=== PATIENT | female | born 1985 | race Caucasian/White ===

== ENCOUNTER 2018-06-28 17:18 | Outpatient (CLI) | payer MEDICAID ==
[~2018-06-28] VITALS: Ht 180.3 cm; Wt 115.5 kg
[~2018-06-28 17:18] MED LIST: BILBERRY; CALCIUM 600/VIT1 CA1; IBU600 MG PO; IRON325 MG PO; PRENATAL1 TA7 PO; PRIMROSE OIL; VITAMIN E 400 U4001 PO; [UNRECOGNIZED DRUG - OTHER]
[2018-06-28 17:23] VITALS: BP 125/72; PULSE 82; TEMP 98.8
== END 2018-06-28 18:25 | disposition home or self-care (01) ==
LOC: LDRO 17:18 → LDR 17:36 → LDRO 18:25
DX: O26.892 Other specified pregnancy related conditions, second trimester (principal); R10.10 Upper abdominal pain, unspecified; Z3A.27 27 weeks gestation of pregnancy
CPT/HCPCS: OP

== ENCOUNTER 2018-09-28 15:55 | Inpatient (IN) | payer MEDICAID ==
[2018-09-28] VITALS (7 sets, daily range): BP systolic 119–141; BP diastolic 66–78; PULSE 75–86; TEMP 97.4–97.7
[~2018-09-28] VITALS: Ht 180.3 cm; Wt 116.4 kg
[2018-09-28] MEDS ORDERED: VITAMIN B COMPL1 SGL PO (16:05)
[2018-09-28 16:31] LABS: BASO % 0.2 % (0.0-2.0); EOS # 0.3 (0.0-0.7); EOS % 1.9 % (0-4.0); GRAN # 9.8 (1.4-6.5); GRAN % 71.9 % (42.2-75.2); HEMATOCRIT 39.5 % (37.0-47.0); HEMOGLOBIN 13.3 g/dl (12.5-16.0); LYMPH # 2.5 (1.2-3.4); LYMPH % 18.2 % (20.0-51.0); MEAN CELL VOLUME 90 fl (80.0-100.0); MEAN CORPUSCULAR HEMOGLOBIN 30 pg (27.0-31.0); MEAN CORPUSCULAR HGB CONC 34 g/dl (33.0-37.0); MEAN PLATELET VOLUME 11.6 fl (7.4-10.4); MONO % 7.5 % (1.7-9.3); PLATELET COUNT 218 K/mm3 (130-400); RED BLOOD COUNT 4.37 M/mm3 (4.10-5.30); REDCELL DISTRIBUTION WIDTH-CV 12.4 % (11.5-14.5)
[2018-09-29] VITALS (11 sets, daily range): BP systolic 108–145; BP diastolic 48–78; PULSE 75–90; TEMP 97.4–98.5
[2018-09-30 08:30] VITALS: BP 117/65; PULSE 74; TEMP 97.7
== END 2018-09-30 11:50 | disposition home or self-care (01) | DRG 807 ==
LOC: LDRO 15:55 → LDR 15:56 → OB 16:05 → LDRO 16:05 → OB 09-29 02:45
PROVIDERS: ADMIT Student in an Organized Health Care Education/Training Program
PROC: 10E0XZZ Delivery of Products of Conception, External Approach (ICD-10-PCS; principal; 2018-09-29)
DX: O34.211 Maternal care for low transverse scar from previous cesarean delivery (principal); Z37.0 Single live birth; Z3A.40 40 weeks gestation of pregnancy; O99.214 Obesity complicating childbirth; O87.4 Varicose veins of lower extremity in the puerperium
CPT/HCPCS: J2210; J2590; J7120

== ENCOUNTER → 2020-04-28 | Outpatient (CLI) | payer MEDICAID ==
[~2020-04-28] MED LIST changes: +VITAMIN B COMPL1 SGL PO
== END | disposition still patient (30) ==
LOC: ZCOL.LAB 05:24
DX: Z20.828 Contact with and (suspected) exposure to other viral communicable diseases (principal)

== ENCOUNTER 2020-04-30 07:00 | Inpatient (IN) | payer MEDICAID ==
[~2020-04-30] VITALS: Ht 180.3 cm; Wt 122.7 kg
[2020-04-30] VITALS (26 sets, daily range): BP systolic 109–153; BP diastolic 56–95; PULSE 76–100; TEMP 97.9–98.1
[2020-04-30 07:46] LABS: BASO % 0.3 % (0.0-2.0); EOS # 0.2 (0.0-0.7); EOS % 1.9 % (0-4.0); GRAN # 6.7 (1.4-6.5); GRAN % 65.2 % (42.2-75.2); HEMATOCRIT 38.4 % (37.0-47.0); HEMOGLOBIN 13.1 g/dl (12.5-16.0); LYMPH # 2.6 (1.2-3.4); LYMPH % 24.7 % (20.0-51.0); MEAN CELL VOLUME 92 fl (80.0-100.0); MEAN CORPUSCULAR HEMOGLOBIN 31 pg (27.0-31.0); MEAN CORPUSCULAR HGB CONC 34 g/dl (33.0-37.0); MEAN PLATELET VOLUME 11.8 fl (7.4-10.4); MONO # 0.8 (0.1-0.6); MONO % 7.5 % (1.7-9.3); PLATELET COUNT 176 K/mm3 (130-400); RED BLOOD COUNT 4.18 M/mm3 (4.10-5.30); REDCELL DISTRIBUTION WIDTH-CV 12.1 % (11.5-14.5)
--- NOTE | 2020-04-30 08:32 | NUR ---
0700 PATIENT HERE FOR INDUCTION OF LABOR. EFM ON FHT 125 BABY VERY ACTIVE. PATIENT STATES HAVING OCCASIONAL CONTRACTIONS BUT NOTHING REGULAR. ASSESSMENT DONE, AND IV STARTED AT THIS TIME.
--- NOTE | 2020-04-30 10:49 | NUR ---
1030 DR MAJANO AT BEDSIDE. SVE /-1 AROM WITH AMNIOHOOK LIGHT MEC FLUID. NOTED. PATIENT WANTS EPIDURAL NOW. ESTEFANIA WANG CRNA CALLED AND AT BEDSIDE. 1040 PATIENT SITS UP FOR EPIDURAL PLACEMENT. SEE [employer]CH[employer]IC HELPER NOTES . PATIENT TOLERATES WELL
--- NOTE | 2020-04-30 11:11 | NUR ---
1100 DR REMAINS AT BEDSIDE. PATIENT REPOSITIONED. BREATHS THROUGH EACH CONTRACTION. VARIABLES NOTED WITH EACH CONTRACTION
--- NOTE | 2020-04-30 12:15 | NUR ---
1145 variable noiticed on monitor. Patient ststes feeling pressure. sve complete/+2 dr torres called to comer to room at this time for delivery. 1150 Baby boy delivered at this time by DR. TORRES. CLALI WELL. BBAY TO MOMS CHEST. TRUE KNOT NOTED AND NUCHAL CORD. STRONG CRY NOTED. 1202 PLACENTA DELIVERED AND PITOCIN STARTED AT 333 PER PROTOCOL. FUNDUS FIRM WITH MODERATE AMOUNT BLEEDING NOTED. DR ARANDA REMAINS AT BEDSIDE. NO REPAIR NEEDED.
--- NOTE | 2020-04-30 13:07 | NUR ---
MODERATE SIZE CLOT WITH SOME FREE FLOW NOTED. METHERGINE 0.2 MG IM GIVEN TO LEFT THIGH PER DR TAMAYO
[2020-05-01 02:30] VITALS: BP 111/54; PULSE 72; TEMP 97.6
--- NOTE | 2020-05-01 09:17 | NUR ---
Initial visit; Parents thanked for offering congratulations for the of their son. thanked family for choosing [facility].
[2020-05-01 09:20] VITALS: BP 133/76; PULSE 88; TEMP 98
== END 2020-05-01 14:10 | disposition home or self-care (01) | DRG 807 ==
LOC: LDR 07:00 → OB 07:00
PROVIDERS: ADMIT Student in an Organized Health Care Education/Training Program
PROC: 10E0XZZ Delivery of Products of Conception, External Approach (ICD-10-PCS; principal; 2020-04-30)
PROC: 10907ZC Drainage of Amniotic Fluid, Therapeutic from Products of Conception, Via Natural or Artificial Opening (ICD-10-PCS; 2020-04-30)
DX: O99.824 Streptococcus B carrier state complicating childbirth (principal); Z37.0 Single live birth; O99.214 Obesity complicating childbirth; E66.9 Obesity, unspecified; O34.211 Maternal care for low transverse scar from previous cesarean delivery; O87.4 Varicose veins of lower extremity in the puerperium; O69.81X0 Labor and delivery complicated by cord around neck, without compression, not applicable or unspecified; O77.0 Labor and delivery complicated by meconium in amniotic fluid; O99.814 Abnormal glucose complicating childbirth; Z3A.40 40 weeks gestation of pregnancy
CPT/HCPCS: J2210; J2540; J2590; J2795; J7120

== ENCOUNTER 2021-10-27 01:10 | Inpatient (IN) | payer MEDICAID ==
[2021-10-27] VITALS (61 sets, daily range): BP systolic 109–158; BP diastolic 51–88; PULSE 74–111; TEMP 97.8–98.9
[~2021-10-27] VITALS: Ht 177.8 cm; Wt 125.5 kg
--- NOTE | 2021-10-27 01:20 | NUR ---
[id number] at 39 weeks and 2 days arrives to unit with complaint of spontaneous rupture of membranes around 0000. Pt reports large gush of pink tinged fluid and has continued to leak. Pt reports good movement and denies painful contractions. Pt has a history of 3 , 1 c/s for distress, and 6 successful VBACs, pt wishes to TOLAC. GBS +. Denies headaches, blurry vision, or RUQ pain. Pt oriented to room, call light within reach, bed in low and locked position. US and toco explained and applied. SVE 360/-2, grossly ruptured upon examination. Vital signs obtained. Admission assessment started.
--- NOTE | 2021-10-27 02:30 | NUR ---
18g IV started in left forearm with 1 attempt. Admission labs obtained off IV start. Lactated Ringers infusing to gravity. Consents reviewed and signed with patient.
[2021-10-27 02:44] LABS: BASO % 0.2 % (0.0-2.0); EOS # 0.2 K/mm3 (0.0-0.7); EOS % 2.6 % (0.0-4.0); GRAN # 6.1 K/mm3 (1.4-6.5); GRAN % 64.9 % (42.2-75.2); HEMATOCRIT 37.7 % (37.0-47.0); HEMOGLOBIN 12.9 g/dl (12.5-16.0); LYMPH # 2.2 K/mm3 (1.2-3.4); LYMPH % 23.7 % (20.0-51.0); MEAN CELL VOLUME 92 fl (80.0-100.0); MEAN CORPUSCULAR HEMOGLOBIN 31 pg (27-31); MEAN CORPUSCULAR HGB CONC 34 g/dl (33.0-37.0); MEAN PLATELET VOLUME 11.6 fl (7.4-10.4); MONO # 0.8 K/mm3 (0.1-0.6); MONO % 8.3 % (1.7-9.3); PLATELET COUNT 160 K/mm3 (130-400); RED BLOOD COUNT 4.12 M/mm3 (4.10-5.30); REDCELL DISTRIBUTION WIDTH-CV 12.2 % (11.5-14.5)
[2021-10-27] MEDS ORDERED: OSCAL 500 TAB500 MG PO (03:10)
[2021-10-27] MEDS ORDERED: VITAMIND3 5000 PO (03:13)
[2021-10-27 08:31] LABS: PH 8 (5-8); SQUAMOUS EPITHELIAL 0-2 /hpf (0-10); URINE APPEARANCE Clear (CLEAR/HAZY); URINE BACTERIA Rare /hpf (NONE SEEN); URINE BILIRUBIN Negative (NEGATIVE); URINE BLOOD Negative (NEGATIVE); URINE COLOR Straw (YELLOW); URINE GLUCOSE Negative (NEGATIVE); URINE KETONE Negative (NEGATIVE); URINE LEUKOCYTE ESTERASE Negative (NEGATIVE); URINE NITRATE Negative (NEGATIVE); URINE PROTEIN(semi-quant) Negative (NEGATIVE); URINE RBC 0-2 /hpf (0-2); URINE UROBILINOGEN Negative (NEGATIVE); URINE WBC 0-2 /hpf (0-2)
[2021-10-27 08:38] LABS: ALBUMIN 2.9 gm/dL (3.5-5.0); BILIRUBIN,TOTAL 0.4 mg/dL (0.2-1.2); CALCIUM 8.6 mg/dL (8.4-10.2); CREATININE, serum 0.7 mg/dL (0.57-1.11); POTASSIUM 3.9 mmol/L (3.5-4.5); TOTAL PROTEIN 5.8 gm/dL (6.2-8.1)
[2021-10-27 09:12] LABS: COLLECTION METHOD CLEAN CATCH
--- NOTE | 2021-10-27 16:25 | NUR ---
DR SOREN VO OP PRESENATION
--- NOTE | 2021-10-27 16:50 | NUR ---
[id number] SIDE LYING HIP RELEASE DONE. ASSISTED PATIENT INTO POSITION AND THIS RN AND BARBIE AT BEDSIDE
--- NOTE | 2021-10-27 17:15 | NUR ---
1700 SVE /+[address] Mariella Arredondo and this RN at bedside. Pt begins pushing with contractions. 1710 Spontaneous vaginal delivery of viable female . bulb suctioned and stimulated. Placed on patient's abdomen. Cord clamped by Dr Wolff and cut by mother of baby. Desmond Mcallister takes over care of . 1713 Spontaneous delivery of placenta. Fundal massage done. Firm/midline. Moderate amt of bleeding noted. Pt perineum intact. Court care done. Clean pad and blankets. Safety precautions and plan of care discussed. Pt verbalizes understanding.
--- NOTE | 2021-10-27 19:00 | NUR ---
Epidural catheter dc'd by Desmond Xiong CRNA.
--- NOTE | 2021-10-27 19:15 | NUR ---
Assumed care at this time. Eating at this time and . POC reviewed.
--- NOTE | 2021-10-27 20:00 | NUR ---
VS done. Fundus firm and at the umbilius with a small amount of trickle of lochia down the perineum initially with fundal rub. Moderate amount of lochia noted on chucks under her. Emy Aggarwal R.N. to bedside to assess lochi. Up to restroom at this time. Ambulated well. Reports feeling "more tired than usual" and states "but I was up all night." Unable to voide at this time. Pericare provided. Ice pack in place. Fresh gown on. INT remains intact and secured with extra tape. Taken to room by wheelchair. To bed. Oriented to room. Lights dimmed; plans to nap.
--- NOTE | 2021-10-27 21:10 | NUR ---
VS done at this time. Small amount of lochia noted on ice pack. Up to restroom. Voided 1000mls at this time. Urine noted to have a moderate amount of thick, dark blood. Regular pad in place. Returned to bed. Fundus noted to be boggier than previously; firmed qiuckly with massage. Small amount of lochia noted to gush with initial rub but no further gushes or oozing after that. POC reviewed with pt.
[2021-10-28 01:00] VITALS: BP 123/72; PULSE 70; TEMP 97.8
--- NOTE | 2021-10-28 03:54 | NUR ---
Patient care, medication administration and nursing documentation occurred during a Daylight Savings Time Change.
[2021-10-28 05:15] VITALS: BP 119/68; PULSE 66; TEMP 97.7
[2021-10-28 06:14] LABS: HEMOGLOBIN 11.5 g/dl (12.5-16.0)
[2021-10-28 06:33] LABS: HEMATOCRIT 33.9 % (37.0-47.0)
[2021-10-28] MEDS ORDERED: IBU600 MG PO (09:08)
[2021-10-28 09:09] VITALS: BP 129/75; PULSE 64; TEMP 98
[2021-10-28 12:03] VITALS: BP 121/72; PULSE 72; TEMP 97.9
[2021-10-28 17:40] VITALS: BP 126/68; PULSE 79; TEMP 97.8
== END 2021-10-28 19:00 | disposition home or self-care (01) | DRG 807 ==
LOC: LDRO 01:10 → LDR 01:49 → OB 01:49
PROVIDERS: Obstetrics & Gynecology; ADMIT Student in an Organized Health Care Education/Training Program
PROC: 10E0XZZ Delivery of Products of Conception, External Approach (ICD-10-PCS; principal; 2021-10-27)
DX: O99.824 Streptococcus B carrier state complicating childbirth (principal); Z37.0 Single live birth; O13.4 Gestational [pregnancy-induced] hypertension without significant proteinuria, complicating childbirth; O34.211 Maternal care for low transverse scar from previous cesarean delivery; O99.214 Obesity complicating childbirth; O69.81X0 Labor and delivery complicated by cord around neck, without compression, not applicable or unspecified; Z3A.39 39 weeks gestation of pregnancy
CPT/HCPCS: J2210; J2540; J2590; J2795; J7120